=== PATIENT | male | born 1975 | race Asian ===

== ENCOUNTER 2020-09-14 10:38 | Outpatient (REF) | payer OTHER, SELFPAY ==
[2020-09-14 10:41] LABS: MANUAL DIFF FLAG NO
[2020-09-14 10:52] LABS: Basophils Percent Auto 0.5 % (0-2); Eosinophils Absolute Auto 0.2 X10*3/uL (0.0-0.4); Eosinophils Percent Auto 3.4 % (0-4); Hematocrit 43.8 % (42-52); Hemoglobin 14.9 g/dl (14.0-18.0); Imm Gran Abs Auto 0.01 X10*3/uL (0.00-0.03); Imm Gran Pct Auto 0.2 % (0.0-0.4); Lymphocytes Absolute Auto 2.4 X10*3/uL (1.2-4.9); Lymphocytes Percent Auto 43.6 % (20-40); Mean Corpuscular Hemoglobin 28.7 pg (27.0-33.0); Mean Corpuscular Volume 84.4 fL (80-98); Mean Platelet Volume 11.2 fL (9.4-12.4); Monocytes Absolute Auto 0.3 X10*3/uL (0.1-1.2); Monocytes Percent Auto 5.6 % (2-11); Neutrophils Absolute Auto 2.6 X10*3/uL (2.0-8.3); Neutrophils Percent Auto 46.7 % (45-73); Platelet Count 245 X10*3/uL (160-400); Red Blood Count 5.19 X10*6/uL (4.60-5.80); Red Cell Distribution Width 13.4 % (11.0-16.0); White Blood Count 5.6 X10*3/uL (4.8-10.8)
[2020-09-14 10:56] LABS: Estimated Average Glucose 94 mg/dL; Hemoglobin A1c % 4.9 %
[2020-09-14 11:26] LABS: Alanine Aminotransferase 28 U/L (0-40); Albumin Level 4.6 g/dL (3.5-5.0); Alkaline Phosphatase 94 U/L (39-117); Anion Gap 15 (12-20); Aspartate Amino Transferase 23 U/L (5-37); Bilirubin Total 1.9 mg/dL (0.0-1.0); Blood Urea Nitrogen 14 mg/dL (9-16); Calcium 9.4 mg/dL (8.4-10.2); Carbon Dioxide 26 mmol/L (22-29); Chloride 103 mmol/L (96-108); Cholesterol 190 mg/dL; Estimated Glomerular Filt Rate > 60; Glucose Random 92 mg/dL (60-115); HDL Cholesterol 38 mg/dL; LDL Cholesterol Calculated 116 mg/dl; Potassium 4.3 mmol/l (3.3-5.1); Sodium 140 mmol/L (135-145); Total Protein 8.1 g/dL (6.5-8.0); Triglycerides 183 mg/dL
[2020-09-14 11:47] LABS: Vitamin D 25-OH Total 40.2 ng/mL (>30)
[2020-09-14 11:57] LABS: Vitamin B12 512 pg/mL (200-900)
[2020-09-15 18:03] LABS: CRP High Sensitivity 0.5 mg/L
[2020-09-18 01:52] LABS: Vitamin C 0.9 mg/dL (0.2-2.1)
[2020-09-19 14:27] LABS: Vitamin A 49 mcg/dL (38-98)
== END 2020-09-14 10:39 | disposition home or self-care (01) ==
LOC: HO.LNP 10:38
PROVIDERS: Visit Provider Internal Medicine Gastroenterology
DX: E78.5 Hyperlipidemia, unspecified (principal); E55.9 Vitamin D deficiency, unspecified; Z83.3 Family history of diabetes mellitus
CPT/HCPCS: 80053; 80061; 82180; 82306; 82607; 82746; 83036; 84443; 84590; 85025; 86141

== ENCOUNTER 2021-03-03 11:15 | Outpatient (REF) | payer OTHER, SELFPAY ==
[2021-03-03 12:28] LABS: MANUAL DIFF FLAG NO
[2021-03-03 12:32] LABS: Basophils Percent Auto 0.6 % (0-2); Eosinophils Absolute Auto 0.2 X10*3/uL (0.0-0.4); Hematocrit 40.5 % (42-52); Hemoglobin 14.1 g/dl (14.0-18.0); Imm Gran Abs Auto 0.01 X10*3/uL (0.00-0.03); Imm Gran Pct Auto 0.2 % (0.0-0.4); Lymphocytes Percent Auto 39.6 % (20-40); Mean Corpuscular HGB Conc 34.8 g/dl (31.0-36.0); Mean Corpuscular Hemoglobin 29.1 pg (27.0-33.0); Mean Corpuscular Volume 83.5 fL (80-98); Mean Platelet Volume 11.1 fL (9.4-12.4); Monocytes Absolute Auto 0.3 X10*3/uL (0.1-1.2); Monocytes Percent Auto 6.1 % (2-11); Neutrophils Absolute Auto 2.5 X10*3/uL (2.0-8.3); Neutrophils Percent Auto 50.5 % (45-73); Platelet Count 225 X10*3/uL (160-400); Red Blood Count 4.85 X10*6/uL (4.60-5.80)
[2021-03-03 12:43] LABS: Estimated Average Glucose 91 mg/dL; Hemoglobin A1c % 4.8 %
[2021-03-03 12:55] LABS: Alanine Aminotransferase 18 U/L (0-40); Albumin Level 4.4 g/dL (3.5-5.0); Alkaline Phosphatase 79 U/L (39-117); Anion Gap 10 (12-20); Aspartate Amino Transferase 20 U/L (5-37); Bilirubin Total 1.5 mg/dL (0.0-1.0); Blood Urea Nitrogen 14 mg/dL (9-16); Calcium 9.5 mg/dL (8.4-10.2); Carbon Dioxide 28 mmol/L (22-29); Chloride 108 mmol/L (96-108); Cholesterol 193 mg/dL; Estimated Glomerular Filt Rate > 60; Glucose Random 101 mg/dL (60-115); HDL Cholesterol 36 mg/dL; LDL Cholesterol Calculated 139 mg/dl; Potassium 4.3 mmol/L (3.3-5.1); Sodium 142 mmol/L (135-145); Total Protein 7.8 g/dL (6.5-8.0); Triglycerides 94 mg/dL
[2021-03-03 13:11] LABS: SARS COV2 IgG Negative (Negative)
[2021-03-03 13:14] LABS: Reflex LDLD? No
[2021-03-03 13:15] LABS: Vitamin D 25-OH Total 30.5 ng/mL (>30)
[2021-03-03 13:28] LABS: Folate 13.8 ng/mL (> or = 4.0); Vitamin B12 518 pg/mL (200-900)
[2021-03-05 03:27] LABS: LDL Cholesterol Direct 141 mg/dL (<100)
[2021-03-07 03:36] LABS: Zinc 81 mcg/dL (60-130)
[2021-03-07 23:51] LABS: Histamine Plasma >28.6 ng/mL (< OR = 1.8)
== END 2021-03-03 11:16 | disposition home or self-care (01) ==
LOC: HO.LAB 11:15
PROVIDERS: PCP Internal Medicine; Visit Provider Internal Medicine Gastroenterology
DX: E78.5 Hyperlipidemia, unspecified (principal); E55.9 Vitamin D deficiency, unspecified; Z83.3 Family history of diabetes mellitus; Z91.018 Allergy to other foods
CPT/HCPCS: 36415; 80053; 80061; 82306; 82607; 82746; 82785; 83036; 83088; 83721; 84630; 85025; 86003; 86141; 86481; 86769

== ENCOUNTER 2021-12-12 15:34 | Outpatient (REF) | payer OTHER, SELFPAY ==
[2021-12-12 15:47] LABS: MANUAL DIFF FLAG NO
[2021-12-12 15:49] LABS: Basophils Percent Auto 0.6 % (0-2); Eosinophils Absolute Auto 0.2 X10*3/uL (0.0-0.4); Eosinophils Percent Auto 3.4 % (0-4); Hematocrit 41.7 % (42.0-52.0); Hemoglobin 14.4 g/dl (14.0-18.0); Imm Gran Abs Auto 0.01 X10*3/uL (0.00-0.03); Imm Gran Pct Auto 0.2 % (0.0-0.4); Lymphocytes Absolute Auto 2.3 X10*3/uL (1.2-4.9); Lymphocytes Percent Auto 46.9 % (20-40); Mean Corpuscular HGB Conc 34.5 g/dl (31.0-36.0); Mean Corpuscular Hemoglobin 28.7 pg (27.0-33.0); Mean Corpuscular Volume 83.2 fL (80.0-98.0); Mean Platelet Volume 10.8 fL (9.4-12.4); Monocytes Absolute Auto 0.3 X10*3/uL (0.1-1.2); Monocytes Percent Auto 6.1 % (2-11); Neutrophils Absolute Auto 2.1 x10*3/uL (2.0-8.3); Neutrophils Percent Auto 42.8 % (45-73); Platelet Count 241 X10*3/uL (160-400); Red Blood Count 5.01 X10*6/uL (4.60-5.80); Red Cell Distribution Width 13.6 % (11.0-16.0); White Blood Count 4.9 X10*3/uL (4.8-10.8)
[2021-12-12 15:57] LABS: Estimated Average Glucose 94 mg/dL; Hemoglobin A1C 108.6378 umol/L; Hemoglobin A1c % 4.9 %
[2021-12-12 16:08] LABS: Alanine Aminotransferase 35 U/L (0-40); Albumin Level 4.6 g/dL (3.5-5.0); Alkaline Phosphatase 86 U/L (39-117); Anion Gap 10 (12-20); Aspartate Amino Transferase 27 U/L (5-37); Bilirubin Total 2.1 mg/dL (0.0-1.0); Blood Urea Nitrogen 14 mg/dL (9-16); Carbon Dioxide 30 mmol/L (22-29); Chloride 106 mmol/L (96-108); Cholesterol 163 mg/dL; Estimated Glomerular Filt Rate > 60; Glucose Fasting 88 mg/dL (60-99); HDL Cholesterol 35 mg/dL; LDL Cholesterol Calculated 106 mg/dl; Potassium 4.7 mmol/L (3.3-5.1); Sodium 141 mmol/L (135-145); Total Protein 8.2 g/dL (6.5-8.0); Triglycerides 110 mg/dL
[2021-12-12 16:45] LABS: Reflex LDLD? No
[2021-12-13 21:52] LABS: CRP High Sensitivity 0.4 mg/L
[2021-12-15 17:51] LABS: Histamine Plasma >28.6 ng/mL (< OR = 1.8)
[2021-12-18 10:56] LABS: Vitamin C 0.8 mg/dL (0.2-2.1)
== END 2021-12-12 15:35 | disposition home or self-care (01) ==
LOC: HO.LAB 15:34
PROVIDERS: Visit Provider Internal Medicine Gastroenterology
DX: E46 Unspecified protein-calorie malnutrition (principal); E78.5 Hyperlipidemia, unspecified; Z91.018 Allergy to other foods; Z83.3 Family history of diabetes mellitus
CPT/HCPCS: 36415; 80053; 80061; 82180; 82306; 82947; 83036; 83088; 83520; 85025; 86141

== ENCOUNTER 2022-02-19 16:17 | Outpatient (REF) | payer OTHER, SELFPAY ==
[2022-02-19 16:31] LABS: MANUAL DIFF FLAG NO
[2022-02-19 16:42] LABS: Estimated Average Glucose 97 mg/dL
[2022-02-19 16:45] LABS: Basophils Percent Auto 0.4 % (0-2); Eosinophils Absolute Auto 0.1 X10*3/uL (0.0-0.4); Eosinophils Percent Auto 1.3 % (0-4); Hematocrit 41.5 % (42.0-52.0); Hemoglobin 14.4 g/dl (14.0-18.0); Imm Gran Abs Auto 0.02 X10*3/uL (0.00-0.03); Imm Gran Pct Auto 0.3 % (0.0-0.4); Lymphocytes Absolute Auto 2.4 X10*3/uL (1.2-4.9); Lymphocytes Percent Auto 31.4 % (20-40); Mean Corpuscular HGB Conc 34.7 g/dl (31.0-36.0); Mean Corpuscular Hemoglobin 28.5 pg (27.0-33.0); Mean Platelet Volume 10.9 fL (9.4-12.4); Monocytes Absolute Auto 0.4 X10*3/uL (0.1-1.2); Monocytes Percent Auto 5.6 % (2-11); Neutrophils Absolute Auto 4.6 x10*3/uL (2.0-8.3); Platelet Count 226 X10*3/uL (160-400); Red Blood Count 5.06 X10*6/uL (4.60-5.80); Red Cell Distribution Width 14.3 % (11.0-16.0); White Blood Count 7.5 X10*3/uL (4.8-10.8)
[2022-02-19 16:51] LABS: Alanine Aminotransferase 26 U/L (0-40); Albumin Level 4.6 g/dL (3.5-5.0); Alkaline Phosphatase 78 U/L (39-117); Anion Gap 12 (12-20); Aspartate Amino Transferase 23 U/L (5-37); Bilirubin Total 2.4 mg/dL (0.0-1.0); Blood Urea Nitrogen 13 mg/dL (9-16); Calcium 9.6 mg/dL (8.4-10.2); Carbon Dioxide 28 mmol/L (22-29); Chloride 105 mmol/L (96-108); Cholesterol 190 mg/dL; Estimated Glomerular Filt Rate > 60; Glucose Random 89 mg/dL (60-115); HDL Cholesterol 38 mg/dL; LDL Cholesterol Calculated 120 mg/dl; Potassium 4.3 mmol/L (3.3-5.1); Sodium 141 mmol/L (135-145); Total Protein 8.3 g/dL (6.5-8.0); Triglycerides 161 mg/dL
[2022-02-19 17:11] LABS: Ferritin 62 ng/mL (20-250)
[2022-02-19 20:55] LABS: Reflex LDLD? No
[2022-02-20 08:56] LABS: SARS-COV-2 IgG Spike, Semi-Qnt >150.00 index (<1.00)
[2022-02-20 14:06] LABS: LDL Cholesterol Direct 133 mg/dL (<100)
[2022-02-23 15:33] LABS: Fructosamine 272 umol/L (205-285); Vitamin C 0.9 mg/dL (0.2-2.1)
== END 2022-02-19 16:18 | disposition home or self-care (01) ==
LOC: HO.LAB 16:17
PROVIDERS: Visit Provider Internal Medicine Gastroenterology
DX: Z20.822 Contact with and (suspected) exposure to COVID-19 (principal); E46 Unspecified protein-calorie malnutrition; E78.5 Hyperlipidemia, unspecified; R79.89 Other specified abnormal findings of blood chemistry; K75.81 Nonalcoholic steatohepatitis (NASH); E55.9 Vitamin D deficiency, unspecified; Z83.3 Family history of diabetes mellitus
CPT/HCPCS: 36415; 80053; 80061; 82180; 82728; 82985; 83036; 83721; 85025; 86769

== ENCOUNTER 2022-08-01 12:52 | Outpatient (REF) | payer OTHER, SELFPAY ==
[2022-08-01 13:03] LABS: MANUAL DIFF FLAG NO
[2022-08-01 13:09] LABS: Basophils Percent Auto 0.6 % (0-2); Eosinophils Absolute Auto 0.1 X10*3/uL (0.0-0.4); Eosinophils Percent Auto 2.6 % (0-4); Hematocrit 41.2 % (42.0-52.0); Hemoglobin 14.1 g/dl (14.0-18.0); Imm Gran Abs Auto 0.01 X10*3/uL (0.00-0.03); Imm Gran Pct Auto 0.2 % (0.0-0.4); Lymphocytes Absolute Auto 2.5 X10*3/uL (1.2-4.9); Lymphocytes Percent Auto 45.6 % (20-40); Mean Corpuscular HGB Conc 34.2 g/dl (31.0-36.0); Mean Corpuscular Volume 81.7 fL (80.0-98.0); Mean Platelet Volume 10.5 fL (9.4-12.4); Monocytes Absolute Auto 0.3 X10*3/uL (0.1-1.2); Monocytes Percent Auto 5.7 % (2-11); Neutrophils Absolute Auto 2.5 x10*3/uL (2.0-8.3); Neutrophils Percent Auto 45.3 % (45-73); Platelet Count 295 X10*3/uL (160-400); Red Blood Count 5.04 X10*6/uL (4.60-5.80); Red Cell Distribution Width 13.6 % (11.0-16.0); White Blood Count 5.4 X10*3/uL (4.8-10.8)
[2022-08-01 13:28] LABS: Cholesterol 175 mg/dL; HDL Cholesterol 35 mg/dL; LDL Cholesterol Calculated 114 mg/dl; Triglycerides 132 mg/dL
[2022-08-01 14:08] LABS: Reflex LDLD? No
[2022-08-03 13:06] LABS: LDL Cholesterol Direct 125 mg/dL (<100)
[2022-08-03 13:51] LABS: CRP High Sensitivity 0.7 mg/L
[2022-08-03 17:41] LABS: Immunoglobulin E 120 kU/L (<OR=114)
[2022-08-06 18:03] LABS: Vitamin C 0.7 mg/dL (0.2-2.1)
[2022-08-07 17:57] LABS: Histamine Plasma 25.4 ng/mL (< OR = 1.8)
== END 2022-08-01 12:53 | disposition home or self-care (01) ==
LOC: HO.LAB 12:52
PROVIDERS: Visit Provider Internal Medicine Gastroenterology
DX: E46 Unspecified protein-calorie malnutrition (principal); E55.9 Vitamin D deficiency, unspecified; E78.5 Hyperlipidemia, unspecified; R79.89 Other specified abnormal findings of blood chemistry
CPT/HCPCS: 36415; 80061; 82180; 82785; 83088; 83721; 85025; 86141

== ENCOUNTER 2023-01-29 13:49 | Outpatient (REF) | payer OTHER, SELFPAY ==
[2023-01-29 14:11] LABS: MANUAL DIFF FLAG NO
[2023-01-29 14:26] LABS: Basophils Percent Auto 0.8 % (0-2); Eosinophils Absolute Auto 0.1 X10*3/uL (0.0-0.4); Eosinophils Percent Auto 2.7 % (0-4); Hematocrit 40.8 % (42.0-52.0); Hemoglobin 14.2 g/dl (14.0-18.0); Imm Gran Abs Auto 0.01 X10*3/uL (0.00-0.03); Imm Gran Pct Auto 0.2 % (0.0-0.4); Lymphocytes Absolute Auto 2.4 X10*3/uL (1.2-4.9); Lymphocytes Percent Auto 46.4 % (20-40); Mean Corpuscular HGB Conc 34.8 g/dl (31.0-36.0); Mean Corpuscular Volume 83.3 fL (80.0-98.0); Mean Platelet Volume 10.8 fL (9.4-12.4); Monocytes Absolute Auto 0.4 X10*3/uL (0.1-1.2); Monocytes Percent Auto 7.2 % (2-11); Neutrophils Absolute Auto 2.2 x10*3/uL (2.0-8.3); Neutrophils Percent Auto 42.7 % (45-73); Platelet Count 226 X10*3/uL (160-400); White Blood Count 5.1 X10*3/uL (4.8-10.8)
[2023-01-29 14:35] LABS: Estimated Average Glucose 88 mg/dL; Hemoglobin A1c % 4.7 %
[2023-01-29 15:01] LABS: Alanine Aminotransferase 23 U/L (0-40); Albumin Level 4.3 g/dL (3.5-5.0); Alkaline Phosphatase 70 U/L (39-117); Anion Gap 12 (12-20); Aspartate Amino Transferase 22 U/L (5-37); Bilirubin Total 3.8 mg/dL (0.0-1.0); Blood Urea Nitrogen 13 mg/dL (9-16); Calcium 9.4 mg/dL (8.4-10.2); Carbon Dioxide 27 mmol/L (22-29); Chloride 105 mmol/L (96-108); Cholesterol 127 mg/dL; Estimated Glomerular Filt Rate > 60; Glucose Fasting 78 mg/dL (60-99); Glucose Random 78 mg/dL (60-115); HDL Cholesterol 34 mg/dL; LDL Cholesterol Calculated 71 mg/dl; Sodium 140 mmol/L (135-145); Total Protein 7.6 g/dL (6.5-8.0); Triglycerides 110 mg/dL
[2023-01-29 15:16] LABS: Vitamin D 25-OH Total 40.9 ng/mL (>30)
[2023-01-29 15:49] LABS: Reflex LDLD? No
[2023-01-31 21:12] LABS: LDL Cholesterol Direct 86 mg/dL (<100)
[2023-02-01 16:52] LABS: CRP High Sensitivity 0.7 mg/L
[2023-02-05 19:48] LABS: Lipoprotein A 28 nmol/L (<75)
[2023-02-06 02:09] LABS: Zinc 73 mcg/dL (60-130)
[2023-02-08 18:02] LABS: Vitamin C 1.4 mg/dL (0.2-2.1)
[2023-02-08 18:33] LABS: Histamine Plasma 26.1 ng/mL (< OR = 1.8)
== END 2023-01-29 13:50 | disposition home or self-care (01) ==
LOC: HO.LAB 13:49
PROVIDERS: Visit Provider Internal Medicine Gastroenterology
DX: E46 Unspecified protein-calorie malnutrition (principal); Z91.018 Allergy to other foods; E78.5 Hyperlipidemia, unspecified; R79.89 Other specified abnormal findings of blood chemistry; E55.9 Vitamin D deficiency, unspecified; K75.81 Nonalcoholic steatohepatitis (NASH); R19.7 Diarrhea, unspecified
CPT/HCPCS: 36415; 80053; 80061; 82180; 82306; 82947; 83036; 83088; 83520; 83695; 83721; 84443; 84630; 85025; 86141

== ENCOUNTER 2023-09-04 14:47 | Outpatient (REF) | payer OTHER, SELFPAY ==
[2023-09-04 15:04] LABS: MANUAL DIFF FLAG NO
[2023-09-04 15:27] LABS: Basophils Percent Auto 0.6 % (0-2); Eosinophils Absolute Auto 0.2 X10*3/uL (0.0-0.4); Eosinophils Percent Auto 3.6 % (0-4); Hematocrit 40.1 % (42.0-52.0); Hemoglobin 14.1 g/dl (14.0-18.0); Imm Gran Abs Auto 0.01 X10*3/uL (0.00-0.03); Imm Gran Pct Auto 0.2 % (0.0-0.4); Lymphocytes Absolute Auto 2.6 X10*3/uL (1.2-4.9); Lymphocytes Percent Auto 48.8 % (20-40); Mean Corpuscular HGB Conc 35.2 g/dl (31.0-36.0); Mean Corpuscular Hemoglobin 29.2 pg (27.0-33.0); Mean Platelet Volume 11.3 fL (9.4-12.4); Monocytes Absolute Auto 0.4 X10*3/uL (0.1-1.2); Monocytes Percent Auto 6.7 % (2-11); Neutrophils Absolute Auto 2.1 x10*3/uL (2.0-8.3); Neutrophils Percent Auto 40.1 % (45-73); Platelet Count 243 X10*3/uL (160-400); Red Blood Count 4.83 X10*6/uL (4.60-5.80); Red Cell Distribution Width 13.8 % (11.0-16.0); White Blood Count 5.3 X10*3/uL (4.8-10.8)
[2023-09-04 16:26] LABS: Estimated Average Glucose 91 mg/dL; Hemoglobin A1c % 4.8 % (<6.0)
[2023-09-04 17:25] LABS: Alanine Aminotransferase 29 U/L (0-40); Albumin Level 4.4 g/dL (3.5-5.0); Alkaline Phosphatase 75 U/L (39-117); Anion Gap 10 (12-20); Aspartate Amino Transferase 29 U/L (5-37); Bilirubin Total 2.6 mg/dL (0.0-1.0); Blood Urea Nitrogen 12 mg/dL (9-16); Calcium 9.7 mg/dL (8.4-10.2); Carbon Dioxide 29 mmol/L (22-29); Chloride 107 mmol/L (96-108); Cholesterol 117 mg/dL (<200); Estimated Glomerular Filt Rate > 60; Glucose Random 80 mg/dL (60-115); HDL Cholesterol 39 mg/dL (>40); LDL Cholesterol Calculated 59 mg/dL (<100); Potassium 3.8 mmol/L (3.3-5.1); Sodium 142 mmol/L (135-145); Total Protein 8.2 g/dL (6.5-8.0); Triglycerides 98 mg/dL (<150); Vitamin D 25-OH Total 33.2 ng/mL (>30)
[2023-09-06 16:13] LABS: Zinc 76 mcg/dL (60-130)
[2023-09-07 15:27] LABS: Vitamin C 1.1 mg/dL (0.2-2.1)
[2023-09-07 16:13] LABS: Histamine Plasma 21.1 ng/mL (< OR = 1.8)
[2023-09-10 04:09] LABS: Lipoprotein A 30 nmol/L (<75)
[2023-09-10 21:35] LABS: Apolipoprotein A1 131 mg/dL (>=115); Apolipoprotein B 64 mg/dL (<90)
== END 2023-09-04 14:48 | disposition home or self-care (01) ==
LOC: HO.LAB 14:47
PROVIDERS: Visit Provider Internal Medicine Gastroenterology
DX: R79.89 Other specified abnormal findings of blood chemistry (principal); E55.9 Vitamin D deficiency, unspecified; E78.5 Hyperlipidemia, unspecified; E46 Unspecified protein-calorie malnutrition; K75.81 Nonalcoholic steatohepatitis (NASH)
CPT/HCPCS: 36415; 80053; 80061; 82172; 82180; 82306; 83036; 83088; 83695; 84630; 85025

== ENCOUNTER 2024-03-23 15:51 | Outpatient (REF) | payer OTHER, SELFPAY ==
[2024-03-23 16:09] LABS: MANUAL DIFF FLAG NO
[2024-03-23 16:33] LABS: Basophils Percent Auto 0.8 % (0-2); Eosinophils Absolute Auto 0.2 X10*3/uL (0.0-0.4); Eosinophils Percent Auto 3.8 % (0-4); Hematocrit 39.9 % (42.0-52.0); Imm Gran Abs Auto 0.01 X10*3/uL (0.00-0.03); Imm Gran Pct Auto 0.2 % (0.0-0.4); Lymphocytes Absolute Auto 2.2 X10*3/uL (1.2-4.9); Lymphocytes Percent Auto 44.2 % (20-40); Mean Corpuscular HGB Conc 35.1 g/dl (31.0-36.0); Mean Corpuscular Volume 82.8 fL (80.0-98.0); Mean Platelet Volume 11.1 fL (9.4-12.4); Monocytes Absolute Auto 0.3 X10*3/uL (0.1-1.2); Monocytes Percent Auto 5.8 % (2-11); Neutrophils Absolute Auto 2.3 x10*3/uL (2.0-8.3); Neutrophils Percent Auto 45.2 % (45-73); Platelet Count 216 X10*3/uL (160-400); Red Blood Count 4.82 X10*6/uL (4.60-5.80); Red Cell Distribution Width 14.1 % (11.0-16.0)
[2024-03-23 16:43] LABS: Estimated Average Glucose 94 mg/dL; Hemoglobin A1c % 4.9 % (<6.0)
[2024-03-23 17:21] LABS: Alanine Aminotransferase 33 U/L (0-40); Albumin Level 4.4 g/dL (3.5-5.0); Alkaline Phosphatase 66 U/L (39-117); Anion Gap 12 (12-20); Aspartate Amino Transferase 31 U/L (5-37); Bilirubin Total 2.2 mg/dL (0.0-1.0); Blood Urea Nitrogen 17 mg/dL (9-16); C Reactive Protein < 0.10 mg/dL (< or = 0.50); Calcium 9.4 mg/dL (8.4-10.2); Carbon Dioxide 26 mmol/L (22-29); Chloride 109 mmol/L (96-108); Cholesterol 139 mg/dL (<200); Estimated Glomerular Filt Rate > 60; Glucose Random 85 mg/dL (60-115); HDL Cholesterol 37 mg/dL (>40); LDL Cholesterol Calculated 70 mg/dL (<100); Potassium 3.8 mmol/L (3.3-5.1); Sodium 143 mmol/L (135-145); Total Protein 7.7 g/dL (6.5-8.0); Triglycerides 161 mg/dL (<150)
[2024-03-23 17:33] LABS: Erythrocyte Sedimentation Rate 14 MM/HR (0-15)
[2024-03-23 17:38] LABS: Vitamin D 25-OH Total 22.2 ng/mL (>30)
[2024-03-23 18:11] LABS: Reflex LDLD? No
[2024-03-24 09:49] LABS: CRP High Sensitivity 0.7 mg/L
[2024-03-24 09:52] LABS: LDL Cholesterol Direct 90 mg/dL (<100)
[2024-03-26 06:08] LABS: Zinc 66 mcg/dL (60-130)
[2024-03-26 21:32] LABS: Aldolase 6.2 U/L (<=8.1)
[2024-03-28 16:14] LABS: Vitamin C 0.8 mg/dL (0.2-2.1)
[2024-03-31 16:53] LABS: Histamine Plasma 15.5 ng/mL (< OR = 1.8)
== END 2024-03-23 15:52 | disposition home or self-care (01) ==
LOC: HO.LAB 15:51
PROVIDERS: Visit Provider Internal Medicine Gastroenterology
DX: E46 Unspecified protein-calorie malnutrition (principal); R79.89 Other specified abnormal findings of blood chemistry; K75.81 Nonalcoholic steatohepatitis (NASH)
CPT/HCPCS: 36415; 80053; 80061; 82085; 82180; 82306; 82550; 83036; 83088; 83721; 84630; 85025; 85652; 86140; 86141

== ENCOUNTER 2024-04-20 08:40 | Day surgery (SDC) | payer OTHER, SELFPAY ==
[2024-04-16 15:15] VITALS: BMI 26.5
[2024-04-20] MEDS: Lactated Ringers 1,000 ML 50 ML IVCONT (08:51)
[2024-04-20 08:55] VITALS: BP 123/77; PULSE 64; RESP 18; TEMP 36.6; O2SAT 97
--- NOTE | 2024-04-20 08:55 | P.CONAN_ITS ---
HPI - Anesthesia Eval Consult details Narrative: 48 yo male patient for EGD, Colonoscopy PMF Active Problems Active Problems: All Active Problems (Updated 04/16/24 @ 12:48 by Brenna Galarza RN) High plasma histamine (Acute) Malnutrition (Acute) Food allergy (Acute) FH: diabetes mellitus (Acute) Vitamin D deficiency (Acute) Hyperlipidemia (Acute) Past Medical History Medical History Hyperlipidemia Family History Family history of problems with anesthesia: No Surgical History Surgical History H/O wisdom tooth extraction History of Problems with Anesthesia: No Social History Social History Household Members: Spouse Are you a primary child care teacher to a significant other at home: No Do you presently have visiting nurse or other home services: No Patient Tobacco Use Status: Never used Tobacco Use of substances other than those prescribed or required for medical reasons: No Have you been hit, kicked, punched, or otherwise hurt by someone within the past year? If so, by whom?: No Are you DNR?: No Advance Directives Information Provided: Yes (as above noted) Advance Directives on File: No Recently lost weight without trying: No Eating poorly because of decreased appetite: No Nutrition Risks: No Nutritional Risk Poor oral hygiene: No Meds Allergies Allergy/AdvReac Type Severity Reaction Status Date / Time No Known Allergies Allergy Verified 04/20/24 08:45 [No Known Allergies*] Active Medications: Current Medications Lactated Ringer's (Lr) 1,000 mls @ 50 mls/hr IVCONT .Q20H HAILEE Last Admin: 04/20/24 08:51 Dose: 50 mls/hr Sodium Biphosphate/Sodium Phosphate (Sodium Phosphate,Crane-Dibasic 133 Ml Enema) 133 ml NC ONCE PRN PRN Reason: Poor Colonoscopy Prep Results Home Medications ?Medication ?Instructions ?Recorded ?Confirmed ?Last Taken ?Type rosuvastatin 40 mg tablet 40 mg PO QAM 04/16/24 04/16/24 Unknown History Exam Height,Weight and Vital Signs: Height 5 ft 11 in Weight 86.183 kg Vital Signs Temp Pulse Resp BP Pulse Ox O2 Del Method 04/20/24 08:55 97.9 F 64 18 123/77 97 Room Air Airway Mallampati Class: II TM Dist: >3cm Neck ROM: Full Loose/Missing/Broken Teeth: No (No broken, loose, missing teeth) Heart: RRR Lungs: CTAB Assessment and Plan Assessment Anesthesia Assessment: Anesthesia Plan Discussed and Chart Reviewed Final Anesthetic Review Family History of Problems with Anesthesia: No History of Problems with Anesthesia: No NPO: Yes ASA Class: II Final Preanesthetic Review: No Changes in Pt Med Stat, Meds/Allgs Chart Reviewed, Consent Obtained/Reviewed and Anes Risks/Benef Reviewed Patient Risk: Low Procedure Risk: Low Assessment/Block/Sedation in SS: Assess/Block/Sedation-SS Anesthetic Plan Anesthetic Plan: TIVA Disposition: Standard PACU
[2024-04-20 11:13] VITALS: BP 102/60; PULSE 71; RESP 14; TEMP 36.4; O2SAT 98
--- NOTE | 2024-04-20 11:16 | P.BOP_ITS ---
Brief Operative Note Date of Service: 04/20/24 Pre-op diagnosis: GERD, Screening Post-op diagnosis: other (Small hiatal hernia, Colon polyp) Procedure: EGD with biopsies, Colonoscopy to the cecum and TI with bx/removal of polyp Surgeon: Chase Rivers MD Anesthesia: MAC Was an Charging Crane Operator used for this Procedure?: No Estimated blood loss (mL): 2.0 Pathology: other (A. Gastric antrum B. EG Junction at 39cm C. Polyp at 15cm) Condition: stable Disposition: PACU
[2024-04-20 11:27] VITALS: BP 115/75; PULSE 77; RESP 18; O2SAT 99
[2024-04-20 11:41] VITALS: BP 117/73; PULSE 73; RESP 18; TEMP 36.6; O2SAT 100
--- NOTE | 2024-04-20 12:27 | OP_ITS ---
DATE OF SERVICE: 04/20/2024 SURGEON: Chase Rivers MD INDICATIONS: The patient presents for evaluation of gastroesophageal reflux and colorectal cancer screening. Full consent has been obtained from him for this, including risks of bleeding and perforation. PREOPERATIVE DIAGNOSIS: Colorectal cancer screening and gastroesophageal reflux. POSTOPERATIVE DIAGNOSIS: PROCEDURE PERFORMED: Esophagogastroduodenoscopy with biopsies, and colonoscopy to the cecum and terminal ileum with biopsy and removal of polyp. ESTIMATED BLOOD LOSS: COMPLICATIONS: ANESTHESIA: Monitored anesthesia care. ASSISTANTS: SPECIMENS: POSTOPERATIVE DIAGNOSES: Colorectal cancer screening and gastroesophageal reflux, minimal hiatal hernia, rule out Rome's esophagus, rule out Helicobacter pylori, small colon polyp, internal hemorrhoids. DESCRIPTION OF PROCEDURE: The patient was placed in the left lateral decubitus position. The Olympus video gastroscope was passed in the posterior oropharynx and upper esophagus under direct vision. The scope was passed slowly to the distal esophagus. The gastroesophageal junction appeared at 39 cm. There was some minimal irregularity, but no evidence of esophagitis and no definitive evidence of Rome's mucosa. There was a minimal hiatal hernia. The scope entered the stomach and was advanced to the pylorus. The duodenum was cannulated to the descending portion. The duodenum including the bulb was carefully inspected and appeared normal without any mass or ulceration. The duodenal folds appeared normal. The scope was withdrawn back to the stomach. The gastric antrum and body appeared normal with good peristalsis. Biopsies were obtained from the gastric antrum. The scope was retroflexed visualizing the proximal stomach carefully, which appeared normal, without any sign of mass or ulceration. The scope was straightened and withdrawn back to the esophagus. Biopsies were obtained at the EG junction at 39 cm. Proximal to this, the esophageal mucosa appeared normal. The scope was withdrawn from the patient. He was turned around for the colonoscopy. The digital rectal exam revealed no abnormalities. The Olympus video pediatric colonoscope was entered into the rectum and advanced easily to the cecum. Once in the cecum, I did identify normal-appearing cecal pouch with appendiceal orifice and a normal-appearing ileocecal valve. The terminal ileum was cannulated and appeared normal. The scope was withdrawn back in the colon. The entire cecum and ileocecal valve appeared normal. The scope was then slowly withdrawn assessing all mucosal surfaces carefully. After a fair amount of irrigation and suctioning, preparation throughout the colon was excellent. The only polyp I visualized was a 3 mm probable hyperplastic polyp at 15 cm, which was biopsied and completely removed with a cold biopsy forceps. I did not visualize any other polyps, colitis, nor angiodysplasia. I did not appreciate any diverticulae. In the rectum, the scope was retroflexed visualizing some small internal hemorrhoidal tissue but no other pathology. The rectal mucosa appeared normal. The scope was straightened and withdrawn from the patient. He tolerated both procedures well and was returned to the recovery area in stable condition. IMPRESSION: 1. Minimal hiatal hernia, gastroesophageal reflux, rule out Rome's esophagus. 2. Rule out Helicobacter pylori. 3. Small colon polyp. 4. Small internal hemorrhoids. PLAN: The results of the biopsies will be checked. If the polyp is a tubular adenoma, I would recommend a followup coloscopy in 5 years. If it is only hyperplastic, I would recommend a followup coloscopy in 10 years. He will continue to use acid suppression medication as needed for any reflux symptoms. I do not think he needs to be on anything chronically unless his symptoms were to increase. He will see me otherwise on a p.r.n. basis. This has been discussed with his . MD SHITAL Otoole/LAURI / [id number] GERMAN
== END 2024-04-20 13:04 | disposition home or self-care (01) ==
PROVIDERS: PCP Internal Medicine; Visit Provider Internal Medicine
PROC: (CPT 45380; principal; 2024-04-20 10:40)
DX: Z12.11 Encounter for screening for malignant neoplasm of colon (principal); K63.5 Polyp of colon; K64.8 Other hemorrhoids; K21.9 Gastro-esophageal reflux disease without esophagitis; K44.9 Diaphragmatic hernia without obstruction or gangrene; E78.5 Hyperlipidemia, unspecified; Z79.899 Other long term (current) drug therapy
CPT/HCPCS: 45380; 43239; 88305; 88313; 88342; J1596; J2250; J2704

== ENCOUNTER 2024-11-17 12:16 | Outpatient (REF) | payer OTHER, SELFPAY ==
[2024-11-17 12:32] LABS: MANUAL DIFF FLAG NO
[2024-11-17 13:22] LABS: Basophils Percent Auto 0.7 % (0-2); Eosinophils Absolute Auto 0.1 X10*3/uL (0.0-0.4); Eosinophils Percent Auto 3.3 % (0-4); Hematocrit 38.5 % (42.0-52.0); Hemoglobin 13.8 g/dl (14.0-18.0); Imm Gran Abs Auto 0.01 X10*3/uL (0.00-0.03); Imm Gran Pct Auto 0.2 % (0.0-0.4); Lymphocytes Absolute Auto 1.9 X10*3/uL (1.2-4.9); Lymphocytes Percent Auto 45.5 % (20-40); Mean Corpuscular HGB Conc 35.8 g/dl (31.0-36.0); Mean Corpuscular Hemoglobin 29.2 pg (27.0-33.0); Mean Corpuscular Volume 81.4 fL (80.0-98.0); Mean Platelet Volume 11.6 fL (9.4-12.4); Monocytes Absolute Auto 0.3 X10*3/uL (0.1-1.2); Monocytes Percent Auto 6.2 % (2-11); Neutrophils Absolute Auto 1.9 x10*3/uL (2.0-8.3); Neutrophils Percent Auto 44.1 % (45-73); Platelet Count 216 X10*3/uL (160-400); Red Blood Count 4.73 X10*6/uL (4.60-5.80); Red Cell Distribution Width 13.2 % (11.0-16.0); White Blood Count 4.2 X10*3/uL (4.8-10.8)
[2024-11-17 13:24] LABS: Estimated Average Glucose 103 mg/dL; Hemoglobin A1c % 5.2 % (<6.0)
[2024-11-17 14:45] LABS: Alanine Aminotransferase 40 U/L (0-40); Albumin Level 4.4 g/dL (3.5-5.0); Alkaline Phosphatase 80 U/L (39-117); Anion Gap 8 (12-20); Aspartate Amino Transferase 30 U/L (5-37); Bilirubin Total 2.3 mg/dL (0.0-1.0); Blood Urea Nitrogen 12 mg/dL (9-16); Calcium 9.5 mg/dL (8.4-10.2); Carbon Dioxide 27 mmol/L (22-29); Chloride 110 mmol/L (96-108); Cholesterol 92 mg/dL (<200); Estimated Glomerular Filt Rate > 60; Glucose Random 90 mg/dL (60-115); HDL Cholesterol 31 mg/dL (>40); LDL Cholesterol Calculated 48 mg/dL (<100); Potassium 4.1 mmol/L (3.3-5.1); Sodium 141 mmol/L (135-145); Total Protein 8.1 g/dL (6.5-8.0); Triglycerides 66 mg/dL (<150)
--- OUTSIDE RECORDS SUMMARY | 2024-11-17 14:57 | XMS_ITS ---
Author Organization [facility] Address [address] [place] [phone] Care Team Providers Care Java Software Name Role Phone NONE, NONE Primary Care Provider Han e Chase Rivers [phone] REASON FOR VISIT procedures Encounters Encounter Location Date Provider Diagnosis [facility] [address] [place] [phone] 04/13/2024 Chase Rivers Plan Of Treatment No Information Progress Notes * BRENDA VELAZQUEZBDOB:1975 (48 yo M)Acc No.[id number]:04/13/2024 Patient:?VELAZQUEZ KEVIN :1975???Age:48 Y???Sex:Male Address:[address] [place] [address] [place], [address] * true * Date:? Generated for Kylee aburto/Al/eTransmitting on:?11/17/2024 02:57 PM EDT
--- OUTSIDE RECORDS SUMMARY | 2024-11-17 14:57 | XMS_ITS | Patient Health Record ---
Author Organization [facility] Address [address] [place] [phone] Care Team Providers Care Recreational Vehicle Resort Manager Name Role Phone NONE, NONE Primary Care Provider Chase Chau [phone] Allergies No Known Allergies Results Component Value Reference Range Notes Pathology Reviewed date:04/23/2024 09:16:27 AM Interpretation: Performing Lab:[facility], [address] [place] [phone] Notes/Report: Name: Kevin Velazquez Age/Sex: 48/M : 1975 Unit#: [id number] Attend Dr: Chase Rivers MD Re04/20/24 Status : [facility] Location: [facility] Disch: SPEC : [id number] RECD : 04/20/24-1154 STATUS: MARÍA RAMIREZ NUM: [id number] [place]: 04/20/24-[address] [facility] [address]: Chase Rivers MD ENTERED: 04/20/24- 15 SP TYPE: Surgical OTHR DR: RIGO POPE MD ORDERED: HE Stain/9, Gross Micro L4/3, IHC, Special st. 2/2, H. pylori, AB/PAS/2 Diagnosis A. Stomach, antrum, biopsy: Gastric antral mucosa with mild chronic inactive gastritis; negative for Helicob acter pylori, intestinal metaplasia and dysplasia. B. Gastroesophageal junction at 39 cm, biopsy: Squamocolumnar junctional mucosa with mild chronic inflamm ation and rare scattered intraepithelial eosinophils (up to 1-2 per high power field); n egative for intestinal metaplasia and dysplasia. C. Stomach, polyp at 15 cm, biopsy: Clinically polypoid colonic mucosa noted; negative for a hyperplastic o r neoplastic process. Clinical History Pre-Op Dx: GERD, screening Post-Op Dx: Hiatal h ernia, reflux, colon polyp, hemorrhoids Microscopic Description A-B. Microscopic sec tions examined. No metaplastic changes are seen, supported by AB/PAS stains (A-B); no Hel icobacter organisms are seen, supported by H. pylori immunostain (A). Material Received A. Gastric antrum bx's B. EG junction bx' at 39 cm C. Polyp at 15 cm Gross Description A. Received in forma dianna are 3 anderson 3 mm soft tissue fragments, totally submitted in A1. B. Received in forma dianna are multiple anderson 2 mm soft tissue fragments, totally submitted in B1. C. Received in forma dianna is 1 anderson 2 mm soft tissue fragment, totally submitted in C1. (RJD) Special stains order ed and performed: AB/PAS on A-B; immunostain for H. pylori on A. Copies To: RIGO POPE MD [address] [facility] [address] [place] [id number] CONTINUED ON NEXT PAGE Name: Kevin Velazquez Age/Sex: 48/M : 1975 Unit#: [id number] Attend Dr: Chase Rivers MD Re04/20/24 Status : [facility] Location: [facility] Disch: SPEC : [id number] RECD : 04/20/24 STATUS: MARÍA RAMIREZ NUM: [id number] [place]: 04/20/24-[address] [facility] [address]: Chase Rivers MD ENTERED: 04/20/24- 15 SP TYPE: Surgical OTHR DR: RIGO POPE MD ORDERED: HE Stain/9, Gross Micro L4/3, IHC, Special st. 2/2, H. pylori, AB/PAS/2 Copies To: (Continued) Chase Rivers MD [facility] [address] [place] [phone] Signed (si gnature on file) Janis Borrero MD 04/21/24 1047 END OF REPORT Reason For Referral No Information Medications Medication SIG (Take, Route, Frequency, Duration) Notes Start Date End Date Status Rosuvastatin Calcium 40 MG 1 tablet Oral ly Once a day for 30 day(s) Active Problems Problem Type SNOMED Code ICD Code Onset Dates Problem Status W/U Status Risk Notes Problem Colon cancer screening (463420533) Colon cancer screening (Z12.11) Active confirmed Problem Gastro-esophageal reflux disease without esophagitis (465803164) Gastro-esophag eal reflux disease without esophagitis (K21.9) Active confirmed Problem Gastroesophageal reflux disease (disorder) (791304866) Chronic GERD (K21.9) Active confirmed Encounters Encounter Location Date Provider Diagnosis [facility] Outpatient [address] [place] [phone] 04/20/2024 Chase Rivers Chronic GERD K21.9 and Colon cancer screening Z12.11 [facility] [address] [facility] [address] [place] [phone] 12/24/2023 Chase Rivers Chronic GERD K21.9 and Colon cancer screening Z12.11 [facility] [address] [place] [phone] 04/13/2024 Chase Rivers Assessments Encounter Date Diagnosis (ICD Code) Assessment Notes Treatment Notes Treatment Clinical Notes Section Notes 04/20/2024 Colon cancer screening (ICD-10 - Z12.11) Overall, Kevin appears quite well. Given his age and excellent clinical appearance, he will undergo a colonoscopy for screening purposes. We did review the rationale for that in regard to colorectal cancer prevention. He will also have an upper endoscopy for evaluation of his reflux. Full consent has been obtained from him for both procedures, including risks of bleeding and perforation. The procedures will be done with monitored anesthesia care. Kevin is comfortable with this plan. 04/20/2024 Chronic GERD (ICD-10 - K21.9) Overall, Kevin appears quite well. Given his age and excellent clinical appearance, he will undergo a colonoscopy for screening purposes. We did review the rationale for that in regard to colorectal cancer prevention. He will also have an upper endoscopy for evaluation of his reflux. Full consent has been obtained from him for both procedures, including risks of bleeding and perforation. The procedures will be done with monitored anesthesia care. Kevin is comfortable with this plan. 12/24/2023 Colon cancer screening (ICD-10 - Z12.11) 12/24/2023 Chronic GERD (ICD-10 - K21.9) Plan Of Treatment Future Test Test Name Order Date UPPER GI ENDOSCOPY 12/26/2023 COLONOSCOPY 12/26/2023 UPPER GI ENDOSCOPY 04/19/2024 COLONOSCOPY 04/19/2024 Insurance Providers Payer Name Payer Address Payer Phone Subscriber Number Group Number Insured Name Patient Relationship to Insured Coverage Start Date Coverage End Date [employer] [place] 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
--- OUTSIDE RECORDS SUMMARY | 2024-11-17 14:57 | XMS_ITS ---
Author Organization [facility] Address [address] [place] [address] Care Team Providers Care Teletypist Name Role Phone NONE, NONE Primary Care Provider Han e Chase Rivers Unavailable [phone] Allergies No Known Allergies REASON FOR VISIT Colorectal cancer screening, GERD Medications Medication SIG (Take, Route, Frequency, Duration) Notes Start Date End Date Status Rosuvastatin Calcium 40 MG 1 tablet Oral ly Once a day for 30 day(s) Active Problems Problem Type SNOMED Code ICD Code Onset Dates Problem Status W/U Status Risk Notes Problem Gastro-esophagea l reflux disease without esophagitis (226185413) Gastro-esophage al reflux disease without esophagitis (K21.9) Active confirmed Encounters Encounter Location Date Provider Diagnosis [facility] [place] [place] Outpatient [address], [place] [phone] 04/20/2024 Chase Rivers Chronic GERD K21.9 and Colon cancer screening Z12.11 Assessments Encounter Date Diagnosis (ICD Code) Assessment Notes Treatment Notes Treatment Clinical Notes Section Notes 04/20/2024 Chronic GERD (ICD-10 - K21.9) Overall, [...] Kevin is comfortable with this plan. 04/20/2024 Colon cancer screening (ICD-10 - Z12.11) [...] care. Kevin is comfortable with this plan. Plan Of Treatment Future Test Test Name Order Date UPPER GI ENDOSCOPY 04/19/2024 COLONOSCOPY 04/19/2024 Progress Notes * BRENDA VELAZQUEZBDOB:1975 (48 yo M)Acc No.[id number]:04/20/2024 EGD&COL/MAC Patient:?KEVIN VELAZQUEZ Provider:?Chase Rivers MD :1975???Age:48 Y???Sex:Male Radhames e:04/20/2024 Address:[address] [place] [address] [facility] Subjective: * Chief Complaints: * ???Colorectal cancer screeni ng, GERD * HPI: ???incontinence:? Kevin is a healthy 48 year-old male presenting for evaluation of gastroesophageal reflux and colorectal cancer screening. ?Kevin describes a history of long-standing intermittent reflux symptoms. He describes intermittent associated heartburn. He denies any dysphagia, anorexia, early satiety, nausea, nor vomiting. He denies any associated abdominal pain, jaundice, nor unintentional weight loss. His bowel movements have been fairly regular and without any signs of bleeding. He denies any known family history of colon cancer. He has not had a previous colonoscopy nor upper endoscopy. ?Laboratories in March revealed a normal CBC and liver profile, other than his chronically elevated total bilirubin. * ROS:?General/Constitutional:?Change in appetite?denies.?Chills?denies.?Fatigue?denies.?Ophthalmologic:?Comments?all negative.?ENT:?Comments?all negative.?Respiratory:?hemoptysis?denies.?Cough?denies.?Cardiovascular:?Chest pain?denies.?Orthopnea?denies.?Gastrointestinal:?Comments?See HPI for details.?Genitourinary:?Hematuria?denies.?Dysuria?denies.?Musculoskeletal:?Painful joints?denies.?Weakness?denies.?Skin:?Itching?denies.?Rash?denies.?Neurologic:?Headache?denies.?Seizures?denies.?Psychiatric:?Comments?all negative.? * Medical History:? * Surgical History:?Denies Pas t Surgical History * Hospitalization/Major Diagno stic Procedure:? * Family History:? No colorectal cancer. * Social History:?Miscellaneous:?Marital status: . 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 ???He denies any history of smoking or significant alcohol use. * Medications:?TakingRosuvasta tin Calcium 40 MG Tablet 1 tablet Orally Once a dayTaking Rosuvastatin Calcium 40 MG Tablet 1 tablet Orally Once a day * Allergies:?N.K.D.A.yes[Aller gies Verified] Objective: * Examination: ???General Examination: ?GENERAL APPEARANCE:?pleasant, well nourished, well developed, in no acute distress.?EYES:?sclera non-icteric.?ORAL CAVITY:?mucosa moist.?NECK/THYROID:?no cervical lymphadenopathy, neck supple.?SKIN:?nonjaundiced, no spider angiomata.?HEART:?S1, S2 normal.?LUNGS:?clear to auscultation bilaterally.?ABDOMEN:?normal bowel sounds, no guarding or rigidity, no guarding or rigidity, no masses palpable, soft, nontender, nondistended.?EXTREMITIES:?no edema.?NEUROLOGIC:?alert and oriented.? Assessment: * Assessment: 1.?Chronic GERD - K21.9 (Constanza rodriguez)?2.?Colon cancer screening - Z12.11? Overall, Kevin appears quit e well. Given his age and excellent clinical [...] care. Kevin is comfortable with this plan. Plan: * Treatment: 2.?Colon cancer screening?Procedure: COLONOSCOPY (Ordered for 04/19/2024)* with MAC * Procedure Codes:? * * Sign off status: Completed true * Provider:?Chase Rivers MD Date:? 024 Generated for Kylee aburto/Al/eTransmitting on:?11/17/2024 02:57 PM EDT History and Physical Notes * HPI (History of Present Illness) Category Sub-Category Detail Notes Category Not es incontinence Kevin is a healthy 48 year-old male presenting for evaluation of gastroesophageal reflux and colorectal cancer screening. Kevin describes a history of long-standing intermittent reflux symptoms. He describes intermittent associated heartburn. He denies any dysphagia, anorexia, early satiety, nausea, nor vomiting. He denies any associated abdominal pain, jaundice, nor unintentional weight loss. His bowel movements have been fairly regular and without any signs of bleeding. He denies any known family history of colon cancer. He has not had a previous colonoscopy nor upper endoscopy. Laboratories in March revealed a normal CBC and liver profile, other than his chronically elevated total bilirubin. Examination Category Sub-Category Detail Notes Category Not es General Examination GENERAL APPEARANCE: pleasant , well nourished, well developed, in no acute distress HEAD: EYES: sclera non-icteric EARS: NOSE: THROAT: NECK/THYROID: no cervical lymphade nopathy, neck supple HEART: S1, S2 normal CHEST: LUNGS: clear to auscultatio n bilaterally ABDOMEN: normal bowel sounds, no guarding or rigidity, no guarding or rigidity, no masses palpable, soft, nontender, nondistended NEUROLOGIC: alert and oriented SKIN: nonjaundiced, no spi alison angiomata EXTREMITIES: no edema PERIPHERAL PULSES: BACK: BREASTS: MUSCULOSKELETAL: MALE GENITOURINARY: LYMPH NODES: RECTAL EXAM: FEMALE GENITOURINARY: ORAL CAVITY: mucosa moist
--- OUTSIDE RECORDS SUMMARY | 2024-11-17 14:57 | XMS_ITS ---
Author Organization [facility] Address [address] [place] [phone] Care Team Providers Care Reliability Technician Name Role Phone NONE, NONE Primary Care Provider Unavailabl e Chase Rivers Unavailable [phone] REASON FOR VISIT egd / colonoscopy Problems Problem Type SNOMED Code ICD Code Onset Dates Problem Status W/U Status Risk Notes Problem Gastroesophageal reflux disease (disorder) (676320124) Chronic GERD (K21.9) Active confirmed Problem Colon cancer screening (368196598) Colon cancer screening (Z12.11) Active confirmed Encounters Encounter Location Date Provider Diagnosis [facility] [address] [place] [phone] 12/24/2023 Chase Rivers Chronic GERD K21.9 and Colon cancer screening Z12.11 Assessments Encounter Date Diagnosis (ICD Code) Assessment Notes Treatment Notes Treatment Clinical Notes Section Notes 12/24/2023 Chronic GERD (ICD-10 - K21.9) 12/24/2023 Colon cancer screening (ICD-10 - Z12.11) Plan Of Treatment Future Test Test Name Order Date UPPER GI ENDOSCOPY 12/26/2023 COLONOSCOPY 12/26/2023 Progress Notes * ELISEO VELAZQUEZOB:1975 (48 yo M)Acc No.[id number]:12/24/2023 Patient:?HENRIQUE VELAZQUEZJO-ANN :1975???Age:48 Y???Sex:Male Address:[place], [address] Subjective: * Chief Complaints: * ???Egd / colonoscopy * Medical History:? * Surgical History:? * Hospitalization/Major Diagno stic Procedure:? * Medications:? Objective: Assessment: * Assessment: 1.?Chronic GERD - K21.9 (Constanza rodriguez)?2.?Colon cancer screening - Z12.11? Plan: * Treatment: 2.?Colon cancer screening?Procedure: COLONOSCOPY (Ordered for 12/26/2023)* with MACsched for 04/20/24 at 11:10 ammiralax * Procedure Codes:? * true * Date:? Generated for Kylee aburto/Al/Lillyitting on:?11/17/2024 02:57 PM EDT
[2024-11-17 15:03] LABS: Vitamin D 25-OH Total 42.2 ng/mL (>30)
[2024-11-17 20:13] LABS: Reflex LDLD? No
[2024-11-20 01:34] LABS: LDL Cholesterol Direct 54 mg/dL (<100)
[2024-11-20 07:32] LABS: Zinc 74 mcg/dL (60-130)
[2024-11-22 18:04] LABS: Fructosamine 276 umol/L (205-285)
[2024-11-26 17:08] LABS: Histamine Plasma >28.6 ng/mL (< OR = 1.8)
== END 2024-11-17 12:17 | disposition home or self-care (01) ==
LOC: HO.LAB 12:16
PROVIDERS: PCP Internal Medicine; Visit Provider Internal Medicine Gastroenterology
DX: E46 Unspecified protein-calorie malnutrition (principal); R79.89 Other specified abnormal findings of blood chemistry
CPT/HCPCS: 36415; 80053; 80061; 82180; 82306; 82985; 83036; 83088; 83721; 84630; 85025

== ENCOUNTER 2025-01-27 14:37 | Outpatient (REF) | payer OTHER, SELFPAY ==
--- OUTSIDE RECORDS SUMMARY | 2025-01-27 14:47 | XMS_ITS ---
Author Organization [facility] Address [address] [place] [phone] Care Team Providers Care Windows Deployment Technician Name Role Phone NONE, NONE Primary Care Provider Unavailabl e Chase Rivers Unavailable [phone] REASON FOR VISIT egd / colonoscopy Problems Problem Type SNOMED Code ICD Code Onset Dates Problem Status W/U Status Risk Notes Problem Gastroesophageal reflux disease (disorder) (220788498) Chronic GERD (K21.9) Active confirmed Problem Colon cancer screening (060587441) Colon cancer screening (Z12.11) Active confirmed Encounters Encounter Location Date Provider Diagnosis [facility] [address] [place] [phone] 12/24/2023 Chase Rivers Chronic GERD K21.9 and Colon cancer screening Z12.11 Assessments Encounter Date Diagnosis (ICD Code) Assessment Notes Treatment Notes Treatment Clinical Notes Section Notes 12/24/2023 Chronic GERD (ICD-10 - K21.9) 12/24/2023 Colon cancer screening (ICD-10 - Z12.11) Plan Of Treatment Future Test Test Name Order Date UPPER GI ENDOSCOPY 12/26/2023 COLONOSCOPY 12/26/2023 Progress Notes * ELISEO VELAZQUEZOB:1975 (48 yo M)Acc No.[id number]:12/24/2023 Patient:?HENRIQUE VELAZQUEZJO-ANN :1975???Age:48 Y???Sex:Male Address:[place], [address] Subjective: * Chief Complaints: * ???Egd / colonoscopy * Medical History:? * Surgical History:? * Hospitalization/Major Diagno stic Procedure:? * Medications:? Objective: Assessment: * Assessment: 1.?Chronic GERD - K21.9 (Constanza rodriguez)?2.?Colon cancer screening - Z12.11? Plan: * Treatment: 2.?Colon cancer screening?Procedure: COLONOSCOPY (Ordered for 12/26/2023)* with MACsched for 04/20/24 at 11:10 ammiralax * Procedure Codes:? * true * Date:? Generated for Kylee aburto/Al/Lillyitting on:?01/27/2025 02:47 PM EDT
--- OUTSIDE RECORDS SUMMARY | 2025-01-27 14:47 | XMS_ITS ---
Author Organization [facility] Address [address] [place] [address] Care Team Providers Care Handkerchief Maker Name Role Phone NONE, NONE Primary Care Provider Han e Chase Rivers Unavailable [phone] Allergies No Known Allergies REASON FOR VISIT Colorectal cancer screening, GERD Medications Medication SIG (Take, Route, Frequency, Duration) Notes Start Date End Date Status Rosuvastatin Calcium 40 MG 1 tablet Oral ly Once a day for 30 day(s) Active Problems Problem Type SNOMED Code ICD Code Onset Dates Problem Status W/U Status Risk Notes Problem Gastro-esophagea l reflux disease without esophagitis (709884425) Gastro-esophage al reflux disease without esophagitis (K21.9) Active confirmed Encounters Encounter Location Date Provider [place] [facility] [place] [place] [address] [place], [place] [phone] 04/20/2024 Chase Rivers Chronic GERD K21.9 and [...] Notes * BRENDA VELAZQUEZBDOB:1975 (48 yo M)Acc No.[id number]:04/20/2024 EGD&COL/MAC Patient:?KEVIN VELAZQUEZ Provider:?Chase Rivers MD :1975???Age:48 Y???Sex:Male Radhames e:04/20/2024 Address:[address] [place] [address] [facility] Subjective: * Chief Complaints: * ???Colorectal cancer [...] cancer. * Social History:?Miscellaneous:?Marital status: . 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. ???He denies any history of smoking or [...] MD Date:? 024 Generated for Kylee aburto/Al/eTransmitting on:?01/27/2025 02:46 PM EDT History and Physical Notes * [...]
--- OUTSIDE RECORDS SUMMARY | 2025-01-27 14:47 | XMS_ITS ---
Author Organization [facility] Address [address] [place] [phone] Care Team Providers Care Tin Roller Hot Mill Name Role Phone NONE, NONE Primary Care Provider Han e Chase Rivers [phone] REASON FOR VISIT procedures Encounters Encounter Location Date Provider Diagnosis [facility] [address] [place] [phone] 04/13/2024 Chase Rivers Plan Of Treatment No Information Progress Notes * BRENDA VELAZQUEZBDOB:1975 (48 yo M)Acc No.[id number]:04/13/2024 Patient:?MARCUS KEVIN :1975???Age:48 Y???Sex:Male Address:[address] [place] [address] [place], [address] * true * Date:? Generated for Kylee aburto/Al/eTransmitting on:?01/27/2025 02:47 PM EDT
--- OUTSIDE RECORDS SUMMARY | 2025-01-27 14:47 | XMS_ITS | Patient Health Record ---
Author Organization [facility] Address [address] [place] [phone] Care Team Providers Care Director Of National Sales Name Role Phone NONE, NONE Primary Care Provider Chase Chau [phone] Allergies No Known Allergies Results Component Value Reference Range Notes Pathology Reviewed date:04/23/2024 09:16:27 AM Interpretation: Performing Lab:[facility], [address] [place] [phone] Notes/Report: Name: Kevin Velazquez Age/Sex: 48/M : 1975 Unit#: [id number] Attend Dr: Chase Rivers MD Re04/20/24 Status : [facility] Location: [facility] Disch: SPEC : [id number] RECD : 04/20/24-1154 STATUS: MARÍA RAMIREZ NUM: [id number] [place]: 04/20/24-[address] [facility] [address]: Chase Rivers MD ENTERED: 04/20/24- 15 [...] A. Copies To: RIGO POPE MD [address] [facility] [address] [place] [id number] CONTINUED ON NEXT PAGE Name: Kevin Velazquez Age/Sex: 48/M : 1975 Unit#: [id number] Attend Dr: Chase Rivers MD Re04/20/24 [place] [facility] [place] [facility] Disch: SPEC : [id number] RECD : 04/20/24 STATUS: MARÍA RAMIREZ NUM: [id number] [place]: 04/20/24-[address] [facility] [address]: Chase Rivers MD ENTERED: 04/20/24- 15 SP TYPE: Surgical OTHR DR: RIGO POPE MD ORDERED: HE Stain/9, Gross Micro L4/3, IHC, Special st. 2/2, H. pylori, AB/PAS/2 Copies To: (Continued) Chase Rivers MD [facility] [address] [place] [phone] Signed (si gnature on file) Janis Borrero MD 04/21/24 [id number] END OF REPORT Reason For Referral No Information Medications Medication SIG (Take, Route, Frequency, Duration) Notes Start Date End Date Status Rosuvastatin Calcium 40 MG 1 tablet Oral ly Once a day for 30 day(s) Active Problems Problem Type SNOMED Code ICD Code Onset Dates Problem Status W/U Status Risk Notes Problem Colon cancer screening (Z12.11) Active confirmed Problem Gastro-esophagea l reflux disease without esophagitis (658181253) Gastro-esophage al reflux disease without esophagitis (K21.9) Active confirmed Problem Chronic GERD (K21.9) Active confirmed Encounters Encounter Location Date Provider Diagnosis [facility] [place] [address] [place] [phone] 04/20/2024 Chase Rivers Chronic GERD K21.9 and Colon cancer screening Z12.11 [facility] [address] [place] [address] 04/13/2024 Chase Rivers Assessments Encounter Date Diagnosis [...] Coverage End Date [employer] [address] [place] [address] [id number] KEVIN VELAZQUEZ Self - patient is the insured Medical (General) History Medical History History ICD Code Hyperlipidemia Denies MD,DM,CVA,Lung disease,renal dise ase 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
[2025-01-27 15:02] LABS: MANUAL DIFF FLAG NO
[2025-01-27 15:44] LABS: Basophils Percent Auto 0.7 % (0-2); Eosinophils Absolute Auto 0.2 X10*3/uL (0.0-0.4); Eosinophils Percent Auto 3.6 % (0-4); Hematocrit 39.8 % (42.0-52.0); Hemoglobin 14.1 g/dl (14.0-18.0); Imm Gran Abs Auto 0.01 X10*3/uL (0.00-0.03); Imm Gran Pct Auto 0.2 % (0.0-0.4); Lymphocytes Absolute Auto 2.1 X10*3/uL (1.2-4.9); Lymphocytes Percent Auto 38.5 % (20-40); Mean Corpuscular HGB Conc 35.4 g/dl (31.0-36.0); Mean Corpuscular Hemoglobin 28.6 pg (27.0-33.0); Mean Corpuscular Volume 80.7 fL (80.0-98.0); Mean Platelet Volume 11.3 fL (9.4-12.4); Monocytes Absolute Auto 0.4 X10*3/uL (0.1-1.2); Monocytes Percent Auto 7.5 % (2-11); Neutrophils Absolute Auto 2.7 x10*3/uL (2.0-8.3); Neutrophils Percent Auto 49.5 % (45-73); Platelet Count 220 X10*3/uL (160-400); Red Blood Count 4.93 X10*6/uL (4.60-5.80); Red Cell Distribution Width 13.8 % (11.0-16.0); White Blood Count 5.5 X10*3/uL (4.8-10.8)
[2025-01-27 15:52] LABS: Estimated Average Glucose 100 mg/dL; Hemoglobin A1C 117.2854 umol/L; Hemoglobin A1c % 5.1 % (<6.0); Total Hemoglobin (HGBA1C) 3689.7667 umol/L
[2025-01-27 16:28] LABS: PSA,Total (Free>4and<10) 1.93 ng/mL (0.00-4.00)
[2025-01-27 16:42] LABS: Folate 8.2 ng/mL (> or = 4.0); Vitamin B12 655 pg/mL (200-900)
[2025-01-27 16:44] LABS: Alanine Aminotransferase 38 U/L (0-40); Albumin Level 4.8 g/dL (3.5-5.0); Alkaline Phosphatase 83 U/L (39-117); Anion Gap 12 (12-20); Aspartate Amino Transferase 35 U/L (5-37); Bilirubin Total 2.4 mg/dL (0.0-1.0); Blood Urea Nitrogen 9 mg/dL (9-16); Calcium 9.7 mg/dL (8.4-10.2); Carbon Dioxide 27 mmol/L (22-29); Chloride 106 mmol/L (96-108); Estimated Glomerular Filt Rate > 60; Ferritin 101 ng/mL (20-250); Glucose Random 82 mg/dL (60-115); Potassium 3.8 mmol/L (3.3-5.1); Sodium 141 mmol/L (135-145)
[2025-01-28 04:54] LABS: LDL Cholesterol Direct 73 mg/dL (<100)
[2025-02-02 16:03] LABS: Histamine Plasma 22.7 ng/mL (< OR = 1.8)
[2025-02-03 17:24] LABS: Immunoglobulin E 152 kU/L (<OR=114)
== END 2025-01-27 14:38 | disposition home or self-care (01) ==
LOC: HO.LAB 14:37
PROVIDERS: PCP Internal Medicine; Visit Provider Internal Medicine Gastroenterology
DX: R35.0 Frequency of micturition (principal); E46 Unspecified protein-calorie malnutrition; Z13.88 Encounter for screening for disorder due to exposure to contaminants; Z12.5 Encounter for screening for malignant neoplasm of prostate
CPT/HCPCS: 36415; 80053; 82172; 82542; 82607; 82728; 82746; 82785; 82985; 83036; 83088; 83721; 84153; 85025

== ENCOUNTER 2025-08-12 12:39 | Outpatient (REF) | payer OTHER, SELFPAY ==
[2025-08-12 12:56] LABS: MANUAL DIFF FLAG NO
[2025-08-12 13:50] LABS: Hematocrit 38.3 % (42.0-52.0); Hemoglobin 13.6 g/dl (14.0-18.0); Imm Gran Abs Auto 0.01 X10*3/uL (0.00-0.03); Imm Gran Pct Auto 0.2 % (0.0-0.4); Lymphocytes Absolute Auto 2.2 X10*3/uL (1.2-4.9); Mean Corpuscular HGB Conc 35.5 g/dl (31.0-36.0); Mean Corpuscular Hemoglobin 28.5 pg (27.0-33.0); Mean Corpuscular Volume 80.3 fL (80.0-98.0); NRBC Abs Auto 0.000 X10*3/uL (0.0-0.012); NRBC Pct Auto 0.0 /100WBC (0.0-0.2); Platelet Count 219 X10*3/uL (160-400); Red Blood Count 4.77 X10*6/uL (4.60-5.80); White Blood Count 4.5 X10*3/uL (4.8-10.8)
[2025-08-12 14:55] LABS: Alanine Aminotransferase 31 U/L (0-40); Albumin Level 4.6 g/dL (3.5-5.0); Alkaline Phosphatase 78 U/L (39-117); Anion Gap 9 (12-20); Aspartate Amino Transferase 32 U/L (5-37); Blood Urea Nitrogen 15 mg/dL (9-16); Calcium 9.3 mg/dL (8.4-10.2); Carbon Dioxide 26 mmol/L (22-29); Chloride 108 mmol/L (96-108); Cholesterol 123 mg/dL (<200); Estimated Glomerular Filt Rate > 60; HDL Cholesterol 30 mg/dL (>40); Potassium 3.8 mmol/L (3.3-5.1); Sodium 139 mmol/L (135-145); Total Protein 7.6 g/dL (6.5-8.0); Triglycerides 152 mg/dL (<150)
[2025-08-12 15:07] LABS: Ferritin 129 ng/mL (20-250)
[2025-08-12 17:01] LABS: Reflex LDLD? No
[2025-08-18 02:38] LABS: PSA, Ultra Sensitive 1.79 ng/mL
== END 2025-08-12 12:40 | disposition home or self-care (01) ==
LOC: HO.LAB 12:39
PROVIDERS: PCP Internal Medicine; Visit Provider Internal Medicine Gastroenterology
DX: Z12.5 Encounter for screening for malignant neoplasm of prostate (principal); R79.89 Other specified abnormal findings of blood chemistry; E55.9 Vitamin D deficiency, unspecified; E78.5 Hyperlipidemia, unspecified; R35.0 Frequency of micturition; K75.81 Nonalcoholic steatohepatitis (NASH)
CPT/HCPCS: 36415; 80053; 80061; 82172; 82306; 82728; 83036; 83088; 84153; 84630; 85025; 86141